=== PATIENT | female | born 1975 | race African-American/Black ===

== ENCOUNTER 2023-02-10 13:25 | Emergency (ER) | payer MEDICAID, OTHER ==
[~2023-02-10] VITALS: Ht 160 cm; Wt 93.9 kg
[2023-02-10 14:15] VITALS: BP 161/98; PULSE 78; RESP 16; TEMP 97.9; O2SAT 99
[2023-02-10] MEDS ORDERED: KETOROLAC TROMETH 60MG/2ML VIAL IM ONE (14:45)
[2023-02-10] MEDS ORDERED: IBUP-1456 PO (15:08)
[2023-02-10] MEDS ORDERED: PRED20TA2 PO (15:08)
== END 2023-02-10 15:28 | disposition home or self-care (01) ==
LOC: ER 13:25
DX: M54.41 Lumbago with sciatica, right side (principal); I10 Essential (primary) hypertension; Z88.0 Allergy status to penicillin; Z98.890 Other specified postprocedural states
CPT/HCPCS: 96372; 99283; J1885

== ENCOUNTER 2023-02-13 12:57 | Emergency (ER) | payer BC, MEDICAID, OTHER ==
[~2023-02-13] VITALS: Ht 160 cm; Wt 91.8 kg
[~2023-02-13 12:57] MED LIST: IBUP-1456 PO; PRED20TA2 PO
[2023-02-13 13:04] VITALS: BP 161/98; PULSE 88; RESP 16; TEMP 96.9; O2SAT 99
[2023-02-13] MEDS ORDERED: KETOROLAC TROMETH 30 MG/ML 1ML VIAL IM ONE (14:00)
[2023-02-13] MEDS ORDERED: DexAMETHasone SOD PHOS 10MG/1ML VIAL INJ IM ONE (14:00)
[2023-02-13] MEDS ORDERED: NAP500T PO (15:52)
[2023-02-13] MEDS ORDERED: PRED20TA2 PO (15:52)
== END 2023-02-13 16:10 | disposition home or self-care (01) ==
LOC: ER 12:57
DX: M54.41 Lumbago with sciatica, right side (principal); I10 Essential (primary) hypertension; E11.9 Type 2 diabetes mellitus without complications; Z98.890 Other specified postprocedural states; Z79.1 Long term (current) use of non-steroidal anti-inflammatories (NSAID); Z79.899 Other long term (current) drug therapy
CPT/HCPCS: 96372; 99284; J1100; J1885

== ENCOUNTER 2023-02-18 09:04 | Emergency (ER) | payer BC ==
[~2023-02-18] VITALS: Ht 160 cm; Wt 88.6 kg
[~2023-02-18 09:04] MED LIST changes: +NAP500T PO
[2023-02-18 10:10] VITALS: BP 146/82; PULSE 95; RESP 18; TEMP 97.7; O2SAT 98
[2023-02-18] MEDS ORDERED: KETOROLAC TROMETH 60MG/2ML VIAL IM ONE (10:30)
[2023-02-18] MEDS ORDERED: TRAM50TA2 PO (10:53)
== END 2023-02-18 11:01 | disposition home or self-care (01) ==
LOC: ER 09:04
DX: M54.41 Lumbago with sciatica, right side (principal); I10 Essential (primary) hypertension; E11.9 Type 2 diabetes mellitus without complications; Z88.0 Allergy status to penicillin; Z79.899 Other long term (current) drug therapy; Z98.890 Other specified postprocedural states
CPT/HCPCS: 96372; 99283; J1885

== ENCOUNTER 2024-08-07 17:02 | Emergency (ER) | payer BC ==
[~2024-08-07] VITALS: Ht 160 cm; Wt 179.4 kg
[~2024-08-07 17:02] MED LIST changes: -NAP500T PO; +TRAM50TA2 PO
--- NOTE | 2024-08-07 18:22 | ED.PDOC ---
History of present illness HPI Comments HPI: 49 y/o F, presents to the ED for CC of hyperglycemia. Patient states, that she has been experiencing high blood pressure readings x3days with associated symptoms of blurred vision, excessive thirst, and dry mouth. Patient comments on, running out of her diabetes medication x1week ago. Patient endorses, blood glucose reading to be 465 at home; blood glucose read at 364 in triage. No other symptoms or modifying factors at this time. Initial Vital Signs: Temp : 97.7 BP: 115/91 HR: 91 RR:19 SpO2: 99 Past Medical History: DM, HTN Past Surgical History: RIGHT KNEE Medications: METFORMIN REVIEW OF SYSTEMS: CONSTITUTIONAL: Denies acute: fever, diaphoresis, chills, HEAD: Denies acute: headache, photophobia Eyes: Denies acute: Double vision, vision loss, eye pain, eye discharge. EARS: Denies acute: tinnitus, hearing loss, ear discharge, ear pain, THROAT: Denies acute: sore throat, swelling, difficulty swallowing , pain with swallowing, change in voice. NECK: Denies acute: neck pain, neck swelling, stiff neck. HEART: Denies acute : chest pain, palpitations, LUNGS: Denies acute: SOB, wheezing, cough, hemoptysis ABDOMEN: Denies acute: abdominal pain, Nausea, Vomiting, diarrhea, melena , hematemesis, hematochezia SKIN: Denies acute: rash, redness, lesions, itchiness. EXTREMITIES: Denies acute: calf pain, numbness, tingling, weakness, denies pain in extremity. Denies acute: Low back pain. Neuro: Denies acute: focal neurological deficit, motor or sensory focal neurological deficit, tremors, seizure like activity, confusion, dizziness, change in mental status, loss of bowel or bladder function, cauda equina like symptoms. : Denies acute: dysuria, hematuria, flank pain, increase in urinary frequency. PSYCH: Denies acute: hallucination, suicidal ideation, homicidal ideation. FEMALE: Denies acute: abnormal vaginal bleeding, foul odor, unusual discharge. PHYSICAL EXAM: General: no acute distress, awake and alert. Head: normocephalic, atraumatic. Neck: supple, trachea is midline, no swelling. Throat: Normal phonation. Eyes:, no erythema, no purulent discharge, no proptosis, no icterus. Heart: regular rate, regular rhythm, no significant murmur appreciated. Lungs: no apparent respiratory distress, Able to speak in full sentences. No wheezing, no rhonchi, no crackles. No stridors Clear to auscultation bilaterally. Abdomen: non tender to palpation, non distended, soft, no guarding, no rebound, + bowel sounds. Neuro: Awake, Alert, oriented to name, self, situation, follows commands GCS=15. Speech is normal. Skin: no petechia, no purpura, no cyanosis, non-pale, not jaundice. Lower extremities: --no - Pitting edema no deformity, no focal swelling, no calf TTP. Makes eye contact. moves all four extremities. Face: no apparent facial droop. Ambulating in the ED independently. ED COURSE: Chief Complaint: Hyperglycemia Time Seen by MD: 17:36 Primary Care Provider: pt does not knoe name History of present illness: Nurses Notes, Allergies Allergies: Coded Allergies: Penicillins (Verified Allergy, Unknown, 02/18/23) Home Meds Active Scripts Tramadol Hcl (Tramadol Hcl) 50 Mg Tab, 50 MG PO BID, #20 TAB Prov:ZOYA WHITT 02/18/23 Prednisone (Prednisone) 20 Mg Tab, 20 MG PO DAILY@BREAKFAST for 5 Days, #5 MG Prov:NICHELLE ORTIZ NP 02/13/23 Prednisone (Prednisone) 20 Mg Tab, 40 MG PO DAILY, #20 MG Prov:ZOYA WHITT 02/10/23 Ibuprofen (Ibuprofen) 800 Mg Tab, 1 TAB PO TID, #30 TAB Prov:ZOYA WHITT 02/10/23 Information Source: Patient Mode of Arrival: Ambulatory Past Medical History PAST MEDICAL HISTORY: DM, HTN 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 Was a procedure done?: No Differential Diagnosis (DM) Differential Diagnosis: Dehydration, Diabetic Coma, DKA, Electrolyte Abnormality, Hyperglycemia, Hyperosmolar State, Hypoglycemia, UTI X-Ray, Labs, Meds, VS Vital Signs Date Time Temp Pulse Resp B/P (MAP) Pulse Ox O2 Delivery O2 Flow Rate FiO2 08/07/24 17:20 97.7 91 19 115/91 (99) 99 Lab Test 08/07/24 18:33 08/07/24 17:49 08/07/24 17:17 Range/Units Urine Color Light-yellow Yellow Urine Clarity Clear Clear Urine pH 5.0 5.0-9.0 Urine Specific [place] 1.046 H 1.001-1.035 Urine Protein Negative Negative Urine Ketones Negative Negative Urine Blood Negative Negative /uL Urine Nitrite Negative Negative Urine Bilirubin Negative Negative Urine Urobilinogen Normal Negative mg/dL Urine Leukocyte Esterase Negative Negative /uL Urine RBC <1 0 - 4 /hpf Urine Microscopic WBC 1 0-5 /HPF Urine Squamous Epithelial Cells Few <5 /hpf Urine Bacteria None seen None Seen /hpf Urine Glucose 4+ H Normal mg/dL White Blood Count 7.1 4.4-10.8 10^3/uL Red Blood Count 5.07 4.0-5.20 10^6/uL Hemoglobin 15.2 12.2-16.2 g/dL Hematocrit 45.7 36.0-46.0 % Mean Corpuscular Volume 90.1 80.0-100.0 fL Mean Corpuscular Hemoglobin 30.0 28.0-32.0 pg Mean Corpuscular Hemoglobin Concent 33.3 32.0-36.0 g/dL Red Cell Distribution Width 13.8 11.8-14.3 % Platelet Count 251 140-450 10^3/uL Mean Platelet Volume 9.3 6.9-10.8 fL Neutrophils (%) (Auto) 44.5 37.0-80.0 % Lymphocytes (%) (Auto) 46.8 10.0-50.0 % Monocytes (%) (Auto) 6.1 0.0-12.0 % Eosinophils (%) (Auto) 2.1 0.0-7.0 % Basophils (%) (Auto) 0.5 0.0-2.0 % Neutrophils # (Auto) 3.1 1.6-8.6 10 ^3/uL Lymphocytes # (Auto) 3.3 0.4-5.4 10 ^3/uL Monocytes # (Auto) 0.4 0-1.3 10 ^3/uL Eosinophils # (Auto) 0.1 0-0.8 10 ^3/uL Basophils # (Auto) 0 0-0.2 10 ^3/uL Nucleated Red Blood Cells 0.5 % Sodium Level 135 L 136-145 mmol/L Potassium Level 4.1 3.5-5.1 mmol/L Chloride Level 101 98-107 mmol/L Carbon Dioxide Level 28 20-31 mmol/L Anion Gap 6 5-15 Blood Urea Nitrogen 14 9-23 mg/dL Creatinine 0.84 0.550-1.02 mg/dL Glomerular Filtration Rate Calc 84 >90 mL/min BUN/Creatinine Ratio 16.7 10.0-20.0 Serum Glucose 389 H 74-106 mg/dL Lactic Acid Level 1.6 0.4-2.0 mmol/L Calcium Level 10.3 8.7-10.4 mg/dL Magnesium Level 1.7 1.6-2.6 mg/dL Total Bilirubin 0.3 0.2-1.0 mg/dL Aspartate Amino Transferase (AST) 22 13-40 U/L Alanine Aminotransferase (ALT) 34 7-40 U/L Alkaline Phosphatase 149 H 46-116 U/L Troponin I High Sensitivity < 3 L </=34 ng/L Total Protein 6.7 5.7-8.2 g/dL Albumin 4.5 3.2-4.8 g/dL POC Glucose 364 H 70-106 mg/dl Time of 1ST Reevaluation: 20:00 Reevaluation 1ST: Unchanged Patient Education/Counseling: Diagnosis, Treatment Family Education/Counseling: Other Comments Patient presented with the above HPI.--- HYPERGLYCEMIA ---workup was initiated. patient was found with the above mentioned diagnosis. the following medications were ordered: IV FLUIDS, INSULIN please refer to order lists of meds and tests obtained by myself Dr. Rivera. Patient ED course and VS have been stabilized. Patient has been reassessed in the ED and remained in a stable condition. Pertinent incidental findings were discussed with the patient and/or family. Patient/family voices understanding and is agreeable with plan. Patient has been observed in the ED adequate length of time to insure improvement/stability. Escalation of care considered: Consideration of escalation to observation or admission Patient was DISCHARGED home in a stable condition. All the reports of any imaging studies that were ordered by myself were reviewed by myself. Departure 1 Departure Time of Disposition: 19:53 Impression: Primary Impression: Hyperglycemia Additional Impressions: Uncontrolled diabetes mellitus Noncompliance with medication regimen Disposition: HOME / SELF CARE / HOMELESS Condition: Stable Additional Instructions: Additional discharge instructions: You MUST follow-up with your primary care/family doctor in 1 to 2 days. If you are unable to see your primary care/family doctor, please return to our emergency room for re-assessment and re-evaluation in 1 to 2 days. Return to the emergency room here in our facility or to the nearest ER POOL if your symptoms change or worsen. CONSULTATIONS: you MUST Follow-up for consultation as soon as possible with: -endocrinology in 1-2 days. Please call for appointment. You MUST call the consultants office yourself to make an appointment. You may need to arrange that through your insurance and/or your primary/family doctor. If you are unable to see the project management consultant in 1 to 2 days, you must return to our emergency room (or any other ER of your choice) for re-assessment and re- evaluation. Adequate fluid hydration. Monitoring blood pressure at home at least 3 times a day. Monitoring blood sugar home at least 3 times a day. Please compliant with the your medications. Below is a copy of your radiological report for follow up: Discharged With: Self Critical Care Note Critical Care Time?: No I personally scribed for YRN RIVERA DO ([email or web address]) on 08/07/24 at 19:17. E lectronically submitted by Monica Brooke ([email or web address]). I personally scribed for YRN RIVERA DO ([email or web address]) on 08/07/24 at 19:29. Elect ronically submitted by Monica Brooke ([email or web address]). I personally scribed for YRN RIVERA DO ([email or web address]) on 08/07/24 at 19:32. Electronically submitted by Monica Brooke ([email or web address]). I personally scribed for YRN RIVERA DO ([email or web address]) on 08/07/24 at 19:58. Electronically submitted by Monica Brooke ([email or web address]). YRN RIVERA DO Aug 07, 2024 18:22
[2024-08-07 18:34] LABS: Urine Bacteria None Seen /hpf (None Seen)
[2024-08-07 18:52] LABS: Basophils # (auto) 0 10 ^3/uL (0-0.2); Basophils % (auto) 0.5 % (0.0-2.0); Eosinophils # (auto) 0.1 10 ^3/uL (0-0.8); Eosinophils % (auto) 2.1 % (0.0-7.0); Hematocrit 45.7 % (36.0-46.0); Hemoglobin 15.2 g/dL (12.2-16.2); Lymphocytes # (auto) 3.3 10 ^3/uL (0.4-5.4); Lymphocytes % (auto) 46.8 % (10.0-50.0); Mean Corpuscular Hgb Conc. 33.3 g/dL (32.0-36.0); Mean Corpuscular Volume 90.1 fL (80.0-100.0); Monocytes # (auto) 0.4 10 ^3/uL (0-1.3); Monocytes % (auto) 6.1 % (0.0-12.0); Neutrophils # (auto) 3.1 10 ^3/uL (1.6-8.6); Neutrophils % (auto) 44.5 % (37.0-80.0); Nucleated Red Blood Cells % 0.5 %; Platelet Count (auto) 251 10^3/uL (140-450); Red Blood Cells 5.07 10^6/uL (4.0-5.20); Red Cell Distribution Width 13.8 % (11.8-14.3); White Blood Cell 7.1 10^3/uL (4.4-10.8)
[2024-08-07 19:22] LABS: Alanine Aminotransferase 34 U/L (7-40); Albumin 4.5 g/dL (3.2-4.8); Anion Gap 6 (5-15); Aspartate Aminotransferase 22 U/L (13-40); BUN/Creatinine Ratio 16.7 (10.0-20.0); Blood Urea Nitrogen 14 mg/dL (9-23); Calcium 10.3 mg/dL (8.7-10.4); Carbon Dioxide 28 mmol/L (20-31); Chloride 101 mmol/L (98-107); Magnesium 1.7 mg/dL (1.6-2.6); Potassium 4.1 mmol/L (3.5-5.1)
[2024-08-07 19:23] LABS: Total Protein 6.7 g/dL (5.7-8.2)
[2024-08-07 19:24] LABS: Urine Blood Negative /uL (Negative); Urine Clarity Clear (Clear); Urine Color Light-Yellow (Yellow); Urine Protein, UAD Negative (Negative); Urine Specific Gravity 1.046 (1.001-1.035); Urine Squamous Epithelial Cell FEW /hpf (<5); Urine Urobilinogen Normal (Negative); Urine WBC 1 /HPF (0-5)
[2024-08-07 19:24] LABS: Glucose 389 mg/dL (74-106); Sodium 135 mmol/L (136-145)
[2024-08-07 19:25] LABS: Alkaline Phosphatase 149 U/L (46-116); Bilirubin, Total 0.3 mg/dL (0.2-1.0)
[2024-08-07] MEDS: SODIUM CHLORIDE 0.9% 1,000 ML IV ONE (21:36)
[2024-08-07] MEDS: InsuLIN REG 1unit/0.01ml Soln (100units/ml) IV ONE (22:01)
[2024-08-07 22:40] VITALS: BP 146/92; PULSE 74; RESP 16; TEMP 98.3; O2SAT 100
== END 2024-08-07 22:41 | disposition home or self-care (01) ==
LOC: ER 17:02
DX: E11.65 Type 2 diabetes mellitus with hyperglycemia (principal); Z98.890 Other specified postprocedural states
CPT/HCPCS: 36415; 80053; 81001; 82947; 83605; 83735; 84484; 85025; 96361; 96374; 99283; J1815; J7030; 82962